=== PATIENT | female | born 1990 | race Two or more races ===

== ENCOUNTER 2020-04-21 06:29 | Inpatient (IN) | payer OTHER ==
[~2020-04-21] VITALS: Ht 170.2 cm; Wt 89.8 kg
[2020-04-21] MEDS ORDERED: PRENATAL TABLE1 EAC1 PO (14:10)
== END 2020-04-23 14:24 | disposition home or self-care (01) | DRG 806 ==
LOC: LDR 06:29 → OB/GYN 06:29 → SURG-SUITE 17:09
PROVIDERS: ADMIT Obstetrics & Gynecology; ATTEND Obstetrics & Gynecology
PROC: 10E0XZZ Delivery of Products of Conception, External Approach (ICD-10-PCS; principal; 2020-04-21)
PROC: 0KQM0ZZ Repair Perineum Muscle, Open Approach (ICD-10-PCS; 2020-04-21)
PROC: 4A1HXFZ Monitoring of Products of Conception, Cardiac Rhythm, External Approach (ICD-10-PCS; 2020-04-21)
DX: O70.1 Second degree perineal laceration during delivery (principal); O41.03X0 Oligohydramnios, third trimester, not applicable or unspecified; O99.824 Streptococcus B carrier state complicating childbirth; Z37.0 Single live birth; Z3A.39 39 weeks gestation of pregnancy